=== PATIENT | female | born 1970 | race Caucasian/White ===

== ENCOUNTER 2019-02-17 13:59 | Emergency (ER) | payer SELFPAY ==
[~2019-02-17] VITALS: Ht 172.7 cm; Wt 68.0 kg
[2019-02-17 14:01] VITALS: BP 124/80
== END 2019-02-17 14:10 | disposition left against medical advice (07) ==
LOC: ER 13:59
DX: R41.82 Altered mental status, unspecified (principal); Z53.21 Procedure and treatment not carried out due to patient leaving prior to being seen by health care provider